=== PATIENT | female | born 1940 | race Caucasian/White ===

== ENCOUNTER 2017-04-29 15:05 | Emergency (ER) | payer MEDICARE ==
[2017-04-29 15:07] VITALS: BP 207/91; PULSE 81; RESP 16; TEMP 98.2; O2SAT 98
--- NOTE | 2017-04-29 15:12 | PD ---
Physical Exam Time Seen by Provider: 15:10 Narrative 76-year-old female presents with possible blood clot in her left leg. Sent from urgent care. Denies leg pain. Reports waking up this morning with left lower leg edema. Denies history of DVT. Reports being on Plavix for history of vein ablation approximately 2 months ago. Patient seen in triage. Vital signs reviewed. Patient taken to medical bed. Data Data Last Documented VS Vital Signs Date Time Temp Pulse Resp B/P (MAP) Pulse Ox O2 Delivery O2 Flow Rate FiO2 04/29/17 15:07 98.2 81 16 207/91 (129) 98 MDM Supervised Visit with LYLY: Leigh Ann Guallpa Apr 29, 2017 15:12
--- NOTE | 2017-04-29 15:22 | PD ---
HPI Chief Complaint: Skin Problem Time Seen by Provider: 15:14 Travel History International Travel<30 days: No Contact w/Intl Traveler<30days: No Traveled to known affect area: No History of Present Illness HPI 76 year old female presents to the emergency department sent from [facility] for DVT to the left lower extremity. Patient is from [place]. She is here on vacation. Patient states that she has chronic swelling to the left lower extremity, but was more severe this morning and she noticed a lump to her lower legs that she went to an urgent care Center. From the urgent care center , she was sent to [facility] for an ultrasound. She states her appendix ultrasound, she was sent here for DVT to the left lower extremity. Patient denies any headache. No fevers or chills. No chest pain or shortness of breath. No abdominal pain. No nausea, vomiting, diarrhea. Her only complaint today is her left lower extremity. She is currently on Plavix for vein ablation that was done in February. She states she is almost out of her Plavix as this was just a short-term prescription. PFSH Past Medical History Hx Anticoagulant Therapy: Yes Cardiovascular Problems: Yes Social History Alcohol Use: No Tobacco Use: No Substance Use: No Allergies-Medications (Allergen,Severity, Reaction): Uncoded Allergies: STATINS (Allergy, Unknown, ATROPHY, 04/29/17) Reported Meds & Prescriptions Reported Meds & Active Scripts Active Xarelto (Rivaroxaban) 15 Mg Tab 15 Mg PO Q12HR 21 Days Reported Plavix (Clopidogrel Bisulfate) 75 Mg Tab 75 Mg PO DAILY Lantus Inj (Insulin Glargine) 1,000 Unit/10 Ml Vial 32 Units SQ HS Humalog Inj (Insulin Human Lispro) 1,000 Unit/10 Ml Vial 12 Units SQ TID Max dose at bedtime:( )units; sugars < 70,(0)units; sugars 150-199,(2)units; sugars 200-249,(4)units; sugars 250-299,(7)units; sugars 300-349,(10)units; sugars more than 349,(12)units. Metformin (Metformin HCl) 500 Mg Tab 500 Mg PO BIDPC With meals Review of Systems Except as stated in HPI: all other systems reviewed are Neg Physical Exam Narrative GENERAL: Well-nourished, well-developed female patient, ambulatory. Afebrile. SKIN: Focused skin assessment warm/dry. HEAD: Normocephalic. Atraumatic. EYES: No scleral icterus. No injection or drainage. NECK: Supple, trachea midline. No JVD or lymphadenopathy. CARDIOVASCULAR: Regular rate and rhythm without murmurs, gallops, or rubs. Bilateral pedal pulses 2+. RESPIRATORY: Breath sounds equal bilaterally. No accessory muscle use. Lungs sounds are clear to auscultation. GASTROINTESTINAL: Abdomen soft, non-tender, nondistended. MUSCULOSKELETAL: No cyanosis. Patient has 2+ lower extremity edema to the left lower extremity. No erythema or evidence of cellulitis. BACK: Nontender without obvious deformity. No CVA tenderness. Data Data Last Documented VS Vital Signs Date Time Temp Pulse Resp B/P (MAP) Pulse Ox O2 Delivery O2 Flow Rate FiO2 04/29/17 17:42 180/81 (114) 04/29/17 15:07 98.2 81 16 98 Orders Orders Complete Blood Count With Diff (04/29/17 15:34) Comprehensive Metabolic Panel (04/29/17 15:34) Act Partial Throm Time (Ptt) (04/29/17 15:34) Prothrombin Time / Inr (Pt) (04/29/17 15:34) Iv Access Insert/Monitor (04/29/17 15:34) Labs Laboratory Tests Test 04/29/17 15:55 White Blood Count 7.3 TH/MM3 Red Blood Count 4.37 MIL/MM3 Hemoglobin 13.0 GM/DL Hematocrit 40.1 % Mean Corpuscular Volume 91.7 FL Mean Corpuscular Hemoglobin 29.8 PG Mean Corpuscular Hemoglobin Concent 32.5 % Red Cell Distribution Width 14.6 % Platelet Count 180 TH/MM3 Mean Platelet Volume 9.7 FL Neutrophils (%) (Auto) 70.7 % Lymphocytes (%) (Auto) 20.9 % Monocytes (%) (Auto) 4.7 % Eosinophils (%) (Auto) 3.1 % Basophils (%) (Auto) 0.6 % Neutrophils # (Auto) 5.2 TH/MM3 Lymphocytes # (Auto) 1.5 TH/MM3 Monocytes # (Auto) 0.3 TH/MM3 Eosinophils # (Auto) 0.2 TH/MM3 Basophils # (Auto) 0.0 TH/MM3 CBC Comment DIFF FINAL Differential Comment Prothrombin Time 10.7 SEC Prothromb Time International Ratio 1.0 RATIO Activated Partial Thromboplast Time 26.0 SEC Blood Urea Nitrogen 18 MG/DL Creatinine 0.98 MG/DL Random Glucose 181 MG/DL Total Protein 6.3 GM/DL Albumin 3.2 GM/DL Calcium Level 8.5 MG/DL Alkaline Phosphatase 76 U/L Aspartate Amino Transf (AST/SGOT) 13 U/L Alanine Aminotransferase (ALT/SGPT) 19 U/L Total Bilirubin 0.6 MG/DL Sodium Level 144 MEQ/L Potassium Level 3.6 MEQ/L Chloride Level 108 MEQ/L Carbon Dioxide Level 28.3 MEQ/L Anion Gap 8 MEQ/L Estimat Glomerular Filtration Rate 55 ML/MIN MDM Medical Decision Making Medical Screen Exam Complete: Yes Emergency Medical Condition: Yes Medical Record Reviewed: Yes Differential Diagnosis DVT versus superficial thrombophlebitis versus cellulitis Narrative Course Studies external female presents to the emergency department sent from [facility] for evaluation of thrombus left lower extremity. I was able to pull up the ultrasound report which shows occlusive thrombus in the left posterior tibial vein, occlusive thrombus in the left greater saphenous vein consistent with superficial thrombus. I discussed the results with my attending physician , Dr. Navarrete, who examined the patient as well. CBC, CMP, PTT, PTT/INR ordered and pending. CBC shows no acute abnormality. CMP shows no acute abnormality. Coags are unremarkable. Patient will be discharged with a prescription for Xarelto. She is instructed to follow-up with her primary care physician before Xarelto is out. Patient verbalizes agreement and understanding. She is to stop taking her Plavix. The patient was discharged in stable condition with instructions, including return instructions and follow up instructions. Diagnosis Primary Impression: Left leg DVT Qualified Codes: I82.432 - Acute embolism and thrombosis of left popliteal vein Referrals: Primary Care Physician 1 week Patient Instructions: Deep Venous Thrombosis (ED), General Instructions Additional Instructions: Takes Xarelto as directed. This dosage changes after the 21 days prescription that I am giving you. Make sure you follow up with your primary care physician before this prescription runs out to get a new prescription. Stop taking your Plavix. Follow-up with your primary care physician. Return to the emergency department for any acute worsening of symptoms. Med/Other Pt SpecificInfo: Prescription(s) given Scripts Rivaroxaban (Xarelto) 15 Mg Tab 15 MG PO Q12HR for Blood Clot Prevention for 21 Days, TAB 0 Refills Prov: Chelsey Ngo 04/29/17 Disposition: 01 DISCHARGE HOME Condition: Stable Chelsey Ngo Apr 29, 2017 15:22
[2017-04-29] MEDS ORDERED: LANTUS2P SQ (16:10)
[2017-04-29] MEDS ORDERED: HUMALOG SQ (16:10)
[2017-04-29] MEDS ORDERED: METF500T PO (16:10)
[2017-04-29] MEDS ORDERED: PLAV75TA29 PO (16:11)
[2017-04-29 16:56] LABS: AUTOMATED NEUTROPHIL # 5.2 TH/MM3 (1.8-7.7); BASOPHIL % 0.6 % (0.0-2.0); EOSINOPHIL # 0.2 TH/MM3 (0-0.4); EOSINOPHIL % 3.1 % (0.0-4.0); HEMATOCRIT 40.1 % (35.0-46.0); HEMO FLAGS DIFF FINAL; LYMPH % 20.9 % (9.0-44.0); LYMPHOCYTE # 1.5 TH/MM3 (1.0-4.8); MEAN CELL VOLUME 91.7 FL (80.0-100.0); MEAN CORPUSCULAR HEMOGLOBIN 29.8 PG (27.0-34.0); MEAN CORPUSCULAR HGB CONC 32.5 % (32.0-36.0); MONO % 4.7 % (0.0-8.0); NEUT % 70.7 % (16.0-70.0); PLATELET COUNT 180 TH/MM3 (150-450); RED BLOOD COUNT 4.37 MIL/MM3 (4.00-5.30); RED CELL DISTRIBUTION WIDTH 14.6 % (11.6-17.2); WHITE BLOOD COUNT 7.3 TH/MM3 (4.0-11.0)
[2017-04-29 17:01] LABS: PROTHROMBIN TIME - PATIENT 10.7 SEC (9.8-11.6)
[2017-04-29 17:10] LABS: ANION GAP 8 MEQ/L (5-15); AST (GOT) 13 U/L (15-37); BICARBONATE 28.3 MEQ/L (21.0-32.0); BLOOD UREA NITROGEN 18 MG/DL (7-18); CHLORIDE 108 MEQ/L (98-107); GLOMERULAR FILTRATION RATE 55 ML/MIN (>89); POTASSIUM 3.6 MEQ/L (3.5-5.1); SODIUM (NA) 144 MEQ/L (136-145)
[2017-04-29 17:11] LABS: ALT (GPT) 19 U/L (10-53)
[2017-04-29 17:13] LABS: ALKALINE PHOSPHATASE 76 U/L (45-117); TOTAL BILIRUBIN ADULT 0.6 MG/DL (0.2-1.0)
[2017-04-29] MEDS ORDERED: XARE15TA PO (17:32)
[2017-04-29 17:42] VITALS: BP 180/81
[2017-04-29 17:58] VITALS: BP 180/81
== END 2017-04-29 17:58 | disposition home or self-care (01) ==
LOC: NEPC 15:05
DX: I82.432 Acute embolism and thrombosis of left popliteal vein (principal); E11.9 Type 2 diabetes mellitus without complications; Z79.4 Long term (current) use of insulin; Z79.84 Long term (current) use of oral hypoglycemic drugs
CPT/HCPCS: 80053; 85025; 85610; 85730; 99283